=== PATIENT | female | born 1945 | race Caucasian/White ===

== ENCOUNTER 2016-12-26 14:56 | Inpatient (IN) | payer MEDICARE ==
[~2016-12-26] VITALS: Ht 160 cm; Wt 132.4 kg
[~2016-12-26 14:56] MED LIST: ACETAMINOPHEN P1 TA1 PO; ADLT ASA LOW81 MG PO; ANTIVERT PO; ASPIRIN/ENTERIC81 MG PO; BIO; BUPROPION HCL150 M2 PO; CYANOCOBAL1000 MCG/M IM; CYANOCOBALAM1000 MCG IJ; DEXAMETHASON4 MG OR; DOXEPIN HCL10 MG PO; EFFEXOR XR150 MG PO; ENALAPRIL5 MG PO; ESCITALOPRAM OX10 MG PO; FLURAZEPAM HCL15 MG PO; FOLIC ACID1 MG PO; FUROSEMIDE40 MG PO; GABAPENTIN100 MG PO; GABAPENTIN300 MG PO; GABAPENTIN800 MG PO; GLIPIZIDE ER10 MG OR; HUMULIN 70/30 SC; HYDROXYZ HCL50 MG OR; LANTUS SC; LANTUS100 MG/ML SC; LASIX 40 MG TAB40 MG PO; LEVOTHYROXIN25 MC1 PO; LORCET 5-325 MG1 TAB; LORCET 5-325 MG1 TAB PO; LORTAB 5 OR; LOSARTAN POT50 MG PO; MECLIZINE25 MG PO; MEDDOSEPAK PO; MELATONIN3 MG PO; METFORMIN1000 MG PO; METFORMIN500 M1 PO; NOVOLIN 70/30 SC; PROMETHAZINE HC25 MG OR; PROTONIX40 M2 PO; PROZAC10 MG OR; RESTORIL7.5 MG PO; SIMVASTATIN20 MG PO; TEMAZEPAM7.5 MG PO; TRAZODONE HCL50 MG PO; TRAZODONE50 MG PO; TRIAM/HCTZ1 CAP PO; VENLAFAXINE50 MG PO; VISTARIL25 MG PO; VITAMIN B-121000 MCG PO; VITAMIN D50000 UN1 PO; WELLBUTRIN SR150 MG PO; ZOFRAN ODT4 MG PO; ZOFRAN8 MG OR
[2016-12-28] VITALS (10 sets, daily range): BP systolic 129–150; BP diastolic 51–74
--- NOTE | 2016-12-28 10:45 | NUR ---
PT TO ROOM VIA BED ACCOMPANIED BY STAFF; PT DROWSY/AROUSABLE; ORIENTED X3; IVF INFUSING IN #20 LFA WITHOUT DIFFICULTY, NO REDNESS OR EDEMA NOTED; DRSG TO LEFT KNEE CDI, LLE ELEVATED ON 2 PILLOWS; SCD TO RLE; O2 2L VIA NC; ORIENTED TO ROOM AND CALL SYSTEM; CALL REED WITHIN REACH; WILL CONTINUE TO MONITOR.
--- NOTE | 2016-12-28 12:37 | NUR ---
PT. INSTRUCTED ON USE OF INCENTIVE SPIROMETER POST SURGERY. HER BEST EFFORT WAS 2000 ML X3 ATEMPTS. GOOD EFFORT GIVEN. DEVICE LEFT AT BEDSIDE WITH INSTRUCTION TO USE 10X/HR.
--- NOTE | 2016-12-28 13:04 | NUR ---
PHYSICAL THERAPY IN WITH PT
--- NOTE | 2016-12-28 13:35 | NUR ---
PT IN RECLINER WITH FEET ELEVATED; ICE PACK APPLIED AT THIS TIME TO LT KNEE; PT MEDICATED FOR LLE PAIN 05/21; CALL REED WITHIN REACH; WILL CONTINUE TO MONITOR.
--- NOTE | 2016-12-28 16:30 | NUR ---
PT ASSISTED BACK TO BED; NO COMPLAINTS VOICED AT THIS TIME; CALL REED WITHIN REACH; WILL CONTINUE TO MONITOR
--- NOTE | 2016-12-28 19:30 | NUR ---
FOUND PT ALERT AND ORIENTED X3; LYING SUPINE IN BED WITH LEFT LEG ELEVATED X1 PILLOW WITH ICE PACK PLACED ON AFFECTED LEG; C/O STABBING PAIN IN LEFT LEG RATES IT AT 10/10; MEDICATED WITH DILAUDID AND ZOFRAN FOR N/V; PT TEMP 101.0 AND HAS CHILLS; REMOVED BLANKET AND PROVIDED A SHEET ONLY; DENIES ANY OTHER DISCOMFORT; WILL CONTINUE TO MONITOR FEVER. CALL REED IS AT REACH.
--- NOTE | 2016-12-28 20:04 | NUR ---
PT C/O PAIN IN LEFT LEG; RATES IT AT 04/21; TEMP 101.0 AT THIS TIME; ADJUSTED ROOM TEMP AND REMOVED BLANKETS; WILL CONTINUE TO MONITOR.
--- NOTE | 2016-12-28 22:00 | NUR ---
NOTIFIED LAB ABOUT BLOOD CULTURES ORDERS STAT.
--- NOTE | 2016-12-28 22:00 | NUR ---
FOUND PT ON EDGE OF BED, TRYING TO GET OUT OF BED; CONFUSE; REORIENTED TO ENVIRONMENT; TEMP 102 TYMPANIC; WILL NOTIFY , ASSSITED PT BACK IN BED; PT PULL OUT IV; WILL RESTART A NEW IV SITE; BED ALARM IN PLACE WILL CONTINUE TO MONITOR.
--- NOTE | 2016-12-28 22:30 | NUR ---
PT PULLED OUT HER IV WHEN SHE WAS TRYING TO SIT UP. PT IS CONFUSED AND DISORIENTED AND DID NOT KNOW SHE WAS TRYING TO GET UP. THIS NURSE TRIED TO START IV IN LEFT HAND X1 AND WAS UNSUCCESSFUL. AISHA EASLEY NURSING HOME ASSISTANT ADMINISTRATOR CALLED TO ASSIST. TRACEE CANALES ABLE TO START IV IN RT HAND. IV FLUIDS STARTED PER ORDERS. IV WRAPPED WITH COBAN TO HELP PRESERVE SIGHT.
--- NOTE | 2016-12-28 23:50 | NUR ---
PT SITTING ON SIDE OF BED NAKED. TRYING TO GET OUT OF BED. IV PUMP AND SCD PUMP ALARMING. PT STATES SHE GOT UP BECAUSE THE MACHINES WERE BEEPING. PT APPEARS CONFUSED WHEN SHE TALKS TO THIS NURSE. PT IS SWEATING PROFUSELY. TEMPERATURE TAKEN. PTS NURSE NOTIFIED OF PT STATUS. REDRESSED AND HELPED BACK INTO BED. PILLOW SUPPORT UNDER LEFT KNEE AND ICE ON INCISION. DRESSING IS CLEAN AND DRY.
--- NOTE | 2016-12-29 00:01 | NUR ---
NOTIFIED LAB ABOUT BLOOD CULTURES ORDERED STAT.
--- NOTE | 2016-12-29 00:38 | NUR ---
FOUND PT TRYING TO GET UP OF BED; NAKED, SEEMS CONFUSE; REORIENTED TO ENVIRONMENT; DIAPHORETIC; TEMP 101.0 AT THIS TIME; WILL MEDICATE WITH PERCOCET PER DR. JACKMAN.
--- NOTE | 2016-12-29 01:11 | NUR ---
ASSISTED PT TO BSC WITH ASSISTANCE BY BONDING SUPERVISOR; PT ASSISTED SELF WITH WALKER; SITTING IN BSC WITH BONDING SUPERVISORBORIS IN ROOM GIVING HER A ASSISTED BATH.
--- NOTE | 2016-12-29 02:00 | NUR ---
NOTIFIED LAB ABOUT BLOOD CULTURES ORDER STAT.
[2016-12-29 02:37] LABS: URINE BILIRUBIN - DIPSTICK NEGATIVE (NEGATIVE); URINE BLOOD DIPSTICK NEGATIVE (NEGATIVE); URINE CLARITY CLEAR; URINE COLOR YELLOW; URINE GLUCOSE - DIPSTICK 100 mg/dL (NEGATIVE); URINE KETONE TRACE mg/dL (NEGATIVE); URINE LEUK ESTERASE SMALL (Negative); URINE NITRITE - DIPSTICK NEGATIVE (Negative); URINE PH 5.5 (4.5-8.0); URINE PROTEIN - DIPSTICK NEGATIVE (NEG-TRACE); URINE SPECIFIC GRAVITY >=1.030; URINE UROBILINOGEN - DIPSTICK 0.2 E.U./dL (0.2)
--- NOTE | 2016-12-29 02:45 | NUR ---
BLOOD CULTURES DRAWN FROM IV SITE DUE TO POOR PT VEINS. IV STOPPED AND 10CC OF INITIAL BLOOD WASTED. BLOOD DRAWN FROM CATHETER WITHOUT DIFFICULTY. BLOOD CULTURES SENT TO LAB.
[2016-12-29 03:42] LABS: URINE BACTERIA FEW hpf; URINE SQUAMOUS EPITHELIAL CELL FEW EPI/hpf (0-FEW)
--- NOTE | 2016-12-29 03:46 | NUR ---
MEDICATED WITH DILAUDID AND ZOFRAN BY PT REQUEST FOR PAIN ON LEFT KNEE; RATES IT AT 8/10; C/O SOME N/V; TEMP 98.0 AT THIS TIME; ALERT AND ORIENTED X3; WILL CONTINUE TO REASSESS PAIN; CALL REED AT REACH; ENCOURAGED TO CALL IF NEEDED; SCD'S IN PLACE; CONTINUE WITH LLE ELEVATED ON A PILLOW AND ICE IN PLACE; DRESSING REMAINS DRY, NO DRAINAGE NOTED AT THIS TIME; CONTINUE WITH SOME SWELLING ON AFFECTED LEG +1 EDEMA NOTED; WILL CONTINUE TO MONITOR. PT USING INCENTIVE SPIROMETRY AND ABLE TO GO UP TO 1500. CALL REED AT REACH AND BED ALARM IN PLACE.
[2016-12-29 04:03] LABS: CALCIUM 8.1 mg/dL (8.4-10.2); CREATININE 1.2 mg/dL (0.5-1.0)
[2016-12-29 04:10] VITALS: BP 136/72
[2016-12-29 05:13] LABS: HEMATOCRIT 27.2 % (37.0-47.0); HEMOGLOBIN 8.4 g/dl (12.0-16.0); IMMATURE GRANULOCYTES 0.7 % (0.0-1.0); MEAN CELL VOLUME 92.5 fL CALC (80.0-100.0); MEAN CORPUSCULAR HGB 28.6 pG CALC (26.0-32.0); MEAN CORPUSCULAR HGB CONC 30.9 g/L CALC (32.0-36.0); NEUT# 14.84 thou/uL (2.00-7.15); RED BLOOD COUNT 2.94 mill/uL (4.20-5.60)
--- NOTE | 2016-12-29 05:48 | NUR ---
PT RESTING WITH EYES CLOSED; RESP EVEN AND UNLABORED; VOICES NO NEW COMPLAINTS AFEBRILE; WILL CONTINUE TO MONITOR.
[2016-12-29 07:33] VITALS: BP 128/65
--- NOTE | 2016-12-29 08:00 | NUR ---
PT TOLERATING DIET WELL; NO COMPLAINTS VOICED; IVF INFUSING WITHOUT DIFFICULTY; CALL REED WITHIN REACH; WILL CONTINUE TO MONITOR.
--- NOTE | 2016-12-29 09:42 | NUR ---
PT AROUSED EASILY TO VERBAL STIMULI; DENIES PAIN; DRSG TO LT KNEE CDI; ENCOURAGE USE OF CALL LIGHT IF ANY ASSISTANCE IS NEEDED; WILL CONTINUE TO MONITOR.
--- NOTE | 2016-12-29 10:28 | NUR ---
PT MEDICATED ORDERED FOR C/O LT KNEE PAIN 05/21; CALL REED WITHIN REACH; WILL CONTINUE TO MONITOR.
--- NOTE | 2016-12-29 11:04 | NUR ---
PHYSICAL THERAPY IN WITH PT; ASSISTED TO RECLINER, FEET ELEVATED; CALL REED WITHIN REACH; WILL CONTINUE TO MONITOR.
[2016-12-29 11:34] VITALS: BP 107/56
--- NOTE | 2016-12-29 13:08 | NUR ---
AM; PATIENT SEEN BEDSIDE FOR ADL AND EX. EX DONE FOR QUAD AND GLUT SETS, ANKLE PUMPS, SLR, LAQ. PATIENT ABLE TO SLR TIMES ONE. TRANSFER TRAINING DONE SUPINE TO SIT AND SIT TO AND FROM STAND. REQUIRED MIN ASSIST FOR SUPINE TO SIT AND SIT TO AND FROM STAND AND VERBAL CUING FOR SAFETY. DURING TRANSFERS TO THE CHAIR WITH THE ROLLING WALKER SHE HAD TAKED 3 STEPS AND HER KNEES BUCKLED. THE THERAPIST WAS ABLE TO PIVOT HER INTO THE CHAIR. PATIENT STATES THIS HAPPENS TO HER AT HOME TOO. SHE IS LEFT COMFORTABLE IN THE CHAIR WITH THE CALL IN HER LAP AND THE LEGS ELEVATED.
--- NOTE | 2016-12-29 13:18 | NUR ---
PT WATCHING TV; NO COMPLAINTS VOICED; CALL REED WITHIN REACH; WILL CONTINUE TO MONITOR.
[2016-12-29 15:13] VITALS: BP 128/50
--- NOTE | 2016-12-29 16:04 | NUR ---
PM: PATIENT SEEN FOR FA AND GAIT TRAINING. TRANSFER TRAINING DONE FROM COMMODE TO BED DONE WITH MAX ASSIST OF 2. PATIENT UNABLE TO COME COMPLETELY UPRIGHT AND WANTS TO LEAN ON HER WALKER WITH HER FOREARMS. SHE IS COLLAPSING HER KNEES WHEN HALF WAY THRU THE TRANSFER CAUSING VERY UNSAFE TRANSFERS. SHE DOES NOT NOT KNOW WHY THIS HAPPENS. GAIT TRAINING DONE ALONG SIDE OF THE BED DOING SIDESTEPPING. AGAIN ENCOURAGING AN ERECT POSTURE AN STRAIGHT KNEES. TRANSFERS SIT TO AND FROM STAND PRACTICED. SHE DOES THE BEST PUSHING WITH ONE HAND ON THE FURNITURE AND ONE ON THE WALKER. PATIENT REITERATES SHE WANTS TO GO HOME TOMORROW BUT THE THERAPIST IS ENCOURAGING HER TO REHAB SHE IS MAX ASSIST OF 2 FOR TRANSFERS TODAY AND IN [place] WILL NOT BE READY FOR INDEP BY TOMORROW. SHE ALSO HAS 5 STEPS AT HOME TO NEGOTIATE. PATIENT WAS LEFT COMFORTABLE IN THE BED WITH THE CALL LIGHT AND TRAY TABLE WITHIN REACH.
[2016-12-29 18:55] VITALS: BP 146/72
--- NOTE | 2016-12-29 19:15 | NUR ---
PT ATTEMPTING TO GET OUT OF BED ON HER OWN DID NOT USE CALL LIGHT FOR ASSISTANCE. MOVED CLOSER TO NURSES STATION ROOM 260. ALERT TO SELF AND , NOT ABLE TO STATE WHERE SHE IS OR DATE, REORIENTED AT THIS TIME AND NOTICED TO BE CONFUSED, BED ALARM APPLIED. DRESSING IN PLACE TO LEFT KNEE CDI. DENIES PAIN. LR INFUSING TO RH AT 100CC/HR. ICE PACK APPLIED TO LEFT KNEE. CALL LIGHT IN REACH.
--- NOTE | 2016-12-29 22:48 | NUR ---
TYMPANIC TEMP 102.1; PT CONFUSE, REORIENTED TO ENVIRONMENT; BED ALARM IN PLACE; ADJUSTED ROOM TEMP, AND PLACED ICE PACKS TO BILA AXILLARIES, BETWEEN BLE, COLD WASHCLOT ON FOREHEA; ICE PACK ON LT KNEE AND ELEVATED WITH A PILLOW, DRSG REMAINS CLEAN, DRY WITHOUT DRAINAGE NOTED; SAFETY MEASURES ARE IN PLACE WILL NOTIFIY DRZuleima ABOUT TEMP SPIKE. WILL CONTINUE TO REASSESS.
--- NOTE | 2016-12-29 23:00 | NUR ---
NOTIFIED OF PT TEMP 102.1; NEW ORDERS RECEIVED, BEATRICE FOR PHARMACY VERIFICATION.
--- NOTE | 2016-12-29 23:30 | NUR ---
MEDICATED PT WITH MOTRIN; FOUND PT ATTEMPTING TO GET UP OF BED; CONFUSE STATES "THIS IS MY HOUSE AND I CAN GET UP ANYTIME I WANT." REORIENTED TO ENVIRONMENT, BUT PT INSISTS THAT SHE IS AT HOME, DENIES THAT SHE HAS SURGERY. REPOSITIONED PT WITH ASSISTANCE X2; ELEVATED LLE ON PILLOW WITH ICE ON KNEE; BED ALARM IN PLACE; WILL COTINUE TO MONITOR.
[2016-12-30] VITALS (8 sets, daily range): BP systolic 90–134; BP diastolic 50–60
[2016-12-30 05:35] LABS: HEMATOCRIT 22.8 % (37.0-47.0); HEMOGLOBIN 7.2 g/dl (12.0-16.0); IMMATURE GRANULOCYTES 0.7 % (0.0-1.0); MEAN CELL VOLUME 91.9 fL CALC (80.0-100.0); MEAN CORPUSCULAR HGB CONC 31.6 g/L CALC (32.0-36.0); NEUT# 11.98 thou/uL (2.00-7.15); RED BLOOD COUNT 2.48 mill/uL (4.20-5.60); RED CELL DISTRI WIDTH 15.5 % (11.5-15.5)
--- NOTE | 2016-12-30 05:52 | NUR ---
PT AWAKE, ALERT AND ORIENTED X3 AT THIS TIME; TEMP 98.2 AT THIS TIME; RESP EVEN AND UNLABORED; LR INFUSING AT 100ML/HR; WITHOUT DIFFICULTY; IV SITE REMAINS INTACT; SCD'S TO RLE, AND LEFT KNEE ELEVATED WITH ICE PACK ON LEFT KNEE; PT DENIES PAIN OR DISCOMFORT AT THIS TIME; VSS, WILL CONTINUE TO MONITOR.
[2016-12-30 05:56] LABS: CALCIUM 7.8 mg/dL (8.4-10.2); CREATININE 1.9 mg/dL (0.5-1.0); POTASSIUM 4.9 mmol/l (3.5-5.1)
--- NOTE | 2016-12-30 06:50 | NUR ---
271 ML ON BLADDER SCAN READING; PT UNDERPADS WET, SYSTEMS INTEGRATOR, ANGIA AND RANDOLPH CHANGING LINENS AND PROVIDING PT WITH A BED BATH AT THIS TIME; PT A/0X3; DENIES PAIN. WILL CONTINUE TO MONITOR. NOTIFIED LAB FOR TYPE AND SCREEN ORDER. WAITING FOR PHARMACY TO PROFILE NS FOR IV BOLUS.
--- NOTE | 2016-12-30 07:02 | NUR ---
NS BOLUS HUNG AT THIS TIME; LAB DRAWING PT FOR TYPE AND SCREEN AT THIS TIME.
--- NOTE | 2016-12-30 08:34 | NUR ---
PRBC INFUSION STARTED AT THIS TIME; INSTRUCTED PT ON S/SX OF REACTION; CALL REED WITHIN REACH; WILL CONTINUE TO MONITOR.
--- NOTE | 2016-12-30 09:00 | NUR ---
DRSG TO LEFT KNEE REMOVED; INCISION WITHOUT REDNESS, WELL APPROXIMATED; COVERED WITH TELFA AND SECURED WITH TEGADERM; PT ASSISTED TO BSC; VOIDS 600 ML CLEAR YELLOW URINE; ASSISTED TO RECLINER FEET ELEVATED; CALL REED WITHIN REACH; WILL CONTINUE TO MONITOR.
--- NOTE | 2016-12-30 09:34 | NUR ---
PHYSICAL THERAPY IN WITH PT
--- NOTE | 2016-12-30 10:03 | NUR ---
DR. GAINES IN TO SEE PT; PLAN OF CARE DISCUSSED
--- NOTE | 2016-12-30 11:41 | NUR ---
PRBC INFUSION COMPLETE; VSS; PT DOES NOT VOICE ANY COMPLAINTS OF PAIN OR DISCOMFORT; CALL REED WITHIN REACH; BED ALARM IN PLACE FOR SAFETY; WILL CONTINUE TO MONITOR.
--- NOTE | 2016-12-30 13:16 | NUR ---
AM: PATIENT UP IN CHAIR. SHE WAS SEEN FOR EX AND FA. DURING THE EVENING SHE WAS TRANSFERED CLOSER TO THE NURSING STATION SHE WAS VERY CONFUSED. ACTIVE AND AA EX DONE IN THE CHAIR. IN SITTING KNEE FLEXION WAS 75 DEGREES. POOR EXTENSION ACTIVELY. PATIENT WANTED TO RETURN TO THE BED. SHE WAS RECEIVING BLOOD PRODUCT. TRANSFER WAS DONE WITH HER NURSE ANALIA ASSISTING. MAX ASSIST OF 2 WAS NEEDED. PATIENT NOT FOLLOWING INSTRUCTIONS. DOES NOT WANT TO BEAR WGT ON THE LEFT LEG. STATED SHE WOULD IN 3 WKS. MAX ASSIST FOR SIT TO SUPINE TRANSFERS. SHE WAS LEFT COMFORTABLE WITH THE TRAY TABLE AND CALL LIGHT NEXT TO HER.
--- NOTE | 2016-12-30 15:15 | NUR ---
PT WITH VISITORS AT BEDSIDE; NO COMPLAINTS VOICED; CALL REED WITHIN REACH; WILL CONTINUE TO MONITOR.
--- NOTE | 2016-12-30 17:00 | NUR ---
PM; TREATMENT LIMITED TO EXERCISES THE PATIENT HAD JUST BEEN RETURNED TO THE BED AFTER USING THE COMMODE AND NURSING STATES THE PATIENT EXPERIENCED GREAT DIFFICULTY WITH THE TRANSFER AND REQUIRED MAX ASSIST OF 2. EX DONE FOR STRETCHING AND STRENGTHENING OF THE LEFT LE. QUAD SET IS MUCH IMPROVED AND SHE IS CLOSE TO BEING ABLE TO SLR. SHE WAS LEFT COMFORTABLE IN THE BED AND ENCOURAGED TO PERFORM SOME OF THE EXERCISES REGULARLY DURING THE EVENING HOURS.
--- NOTE | 2016-12-30 19:44 | NUR ---
PT IS CONFUSED ALERT TO SELF AND , REORIENTED TO TIME AND PLACE AND SITUATION. TEMP 101.4, AND C/O PAIN 5/10 MEDICATED WITH PERCOCET AT THIS TIME AND ICE PACK APPLIED TO LEFT KNEE, CHEST AND FOREHEAD. RESPIRATIONS EVEN AND UNLABORED. BED ALARM IN PLACE. WILL CONTINUE TO MONITOR.
[2016-12-31 00:18] VITALS: BP 112/47
--- NOTE | 2016-12-31 00:45 | NUR ---
INCONTINENT OF LARGE AMOUNT OF DARK YELLOW URINE, PT IS CONFUSED, ORIENTED TO TIME AND DATE BUT CONTINUES TO BE CONFUSED. BO CARE, BED BATH AND CLEAN LINENS PROVIDED. PT HELPS WITH TURNING BUT IS A TWO PERSON ASSIST DUE TO WEIGHT. ICE PACKS APPLIED TO LEFT LEG, CHEST AND FOREHEAD TEMP 99.7, MEDICATED WITH PERCOCET FOR C/O PAIN 6/10 TO LEFT LEG. SCD TO RLE. BED ALARM IN PLACE. WILL CONTINUE TO MONITOR.
--- NOTE | 2016-12-31 02:30 | NUR ---
PT RESTING IN BED WITH EYES CLOSED, RESPIRATIONS EVEN AND UNLABORED.
[2016-12-31 04:08] VITALS: BP 103/52
--- NOTE | 2016-12-31 06:00 | NUR ---
ASSISTED TO BED LAKE PER PT REQUEST STATE "I DONT FEEL LIKE I CAN MAKE IT TO THE COMMODE", INCONTINENT OF LARGE AMOUNT OF URINE, SCANT AMOUNT IN BED LAKE, BO CARE PROVIDED.
[2016-12-31 06:12] LABS: HEMATOCRIT 23.7 % (37.0-47.0); HEMOGLOBIN 7.7 g/dl (12.0-16.0); IMMATURE GRANULOCYTES 1.2 % (0.0-1.0); MEAN CELL VOLUME 90.1 fL CALC (80.0-100.0); MEAN CORPUSCULAR HGB 29.3 pG CALC (26.0-32.0); MEAN CORPUSCULAR HGB CONC 32.5 g/L CALC (32.0-36.0); NEUT# 11.71 thou/uL (2.00-7.15); RED BLOOD COUNT 2.63 mill/uL (4.20-5.60); RED CELL DISTRI WIDTH 15.9 % (11.5-15.5)
[2016-12-31 06:33] LABS: CALCIUM 7.8 mg/dL (8.4-10.2); CREATININE 1.4 mg/dL (0.5-1.0); POTASSIUM 4.7 mmol/l (3.5-5.1)
--- NOTE | 2016-12-31 07:30 | NUR ---
ASSISTED WITH BREAKFAST SET UP; DRSG TO LEFT KNEE CDI; O2 2L VIA NC; SCD TO RLE; CALL REED WITHIN REACH; BED ALARM IN PLACE FOR SAFETY; WILL CONTINUE TO MONITOR.
[2016-12-31 08:04] VITALS: BP 118/60
--- NOTE | 2016-12-31 09:40 | NUR ---
PHYSICAL THERAPY IN WITH PT
--- NOTE | 2016-12-31 10:00 | NUR ---
PT WAS ASSISTED TO THE FLOOR BY PHYSICAL THERAPIST; ARSH LIFT BACK TO BED; NO INJURY NOTED; PT A/O X3 WITH CONFUSION AT TIMES; DRSG TO LEFT KNEE REMOVED; AREA CLEANED WITH BETADINE; COVERED WITH DRY 4X4 GAUZE AND SECURED WITH MEDIPORE TAPE; BED ALARM IN PLACE FOR SAFETY; SIDERAILS UP X2; CALL REED WITHIN REACH; WILL CONTINUE TO MONITOR.
--- NOTE | 2016-12-31 12:21 | NUR ---
AM: PATIENT SEEN FOR FA. TRANSFER TRAIINING DONE SUPINE TO SIT, AND SIT TO COMMODE AND COMMODE TO CHAIR. MOD ASSIST NEEDED FOR SUPINE TO SIT, AND MAX ASSIST OF 2 FOR PIVOT TRANSFERS. PATIENT DOES NOT APPEAR TO TRY TO HOLD HERSELF IN STANDING. SHE WAS LEFT COMFORTABLE IN THE CHAIR.
[2016-12-31 12:52] VITALS: BP 129/53
--- NOTE | 2016-12-31 12:53 | NUR ---
Pt sitting in chair, just finished her lunch. Sitting ex performed x 20 reps each. Pt practiced her IS use as well, up to 1000.
--- NOTE | 2016-12-31 15:30 | NUR ---
PT ATTEMPTING TO GET OOB; ASSISTED BACK TO BED; BED ALARM IN PLACE; PT A/CONFUSED; DENIES PAIN; CALL REED WITHIN REACH; WILL CONTINUE TO MONITOR.
--- NOTE | 2016-12-31 17:20 | NUR ---
T 102.8; ICE PACKS PLACE ON PT; MEDICATED FOR PAIN 4/10 TO LEFT KNEE; DRSG TO LEFT KNEE SATURATED WITH BLOOD; DRSG REMOVED; AREA CLEANED WITH NS, COVERED WITH DRY 4X4 AND SECURED WITH MEDIPORE TAPE; PT TOLERATED WELL; CALL REED WITHIN REACH; WILL CONTINUE TO MONITOR.
[2016-12-31 17:27] VITALS: BP 131/67
[2016-12-31 19:47] VITALS: BP 104/61
--- NOTE | 2016-12-31 19:56 | NUR ---
PT APPEARS TO BE ASLEEP AT THIS TIME;WOKE PT TO OBTAIN VS AND ASSESSMENT;PT DENIES ANY PAIN JUST STATES "I WANT TO GO TO SLEEP";ASSESSMENT COMPLETED;DRY DRESSING TO LEFT KNEE,CDI;#20 TO RIGHT HAND FLUSHED AND PATENT,FLUIDS RESTARTED @ KVO PER MD NOTES;SCD IN PLACE;SKIN INTACT;PT AFEBRILE AT THIS TIME,ICE PACKS PROVIDED AND AC CONTINUED TO BE LOWERED;I.S AT BEDSIDE AND PT RE-EDUCATED ON USE;BED ALARM ON;PT DENIES ANY NEEDS;PT RE-EDUCATED ON ROOM AND CALL LIGHT SYSTEM AND VERBALIZES UNDERSTANDING;SAFETY PRECAUTIONS REINFORCED;BED IN LOWEST POSITION WITH CALL LIGHT IN REACH;WILL CONTINUE TO MONITOR
--- NOTE | 2016-12-31 21:40 | NUR ---
PT RESTING IN SEMI FOWLERS POSITION;PT COMPLAINS OF LEFT KNEE PAIN RATING 9/10 ON THE PAIN SCALE AND REQUESTS PRN PAIN MEDICATION;PT TO BE MEDICATED ACCORDNIGLY PER MD ORDERS;WILL CONTINUE TO MONITOR
--- NOTE | 2016-12-31 22:20 | NUR ---
PT VOIDED 1000CC OF CLEAR,YELLOW URINE;BED BATH,NEW LINENS AND GOWN PROVIDED;IV FLUIDS INFUSING WELL TO RIGHT HAND;DRESSING,CDI;PT DENIES ANY NEEDS AT THIS TIME;PT EDUCATED TO CALL FOR ASSISTANCE IF NEEDED;BED IN LOWEST POSITION WITH CALL LIGHT IN REACH;WILL CONTINUE TO MONITOR
--- NOTE | 2016-12-31 23:55 | NUR ---
PT APPEARS TO BE SLEEPING AT THIS TIME;WOKE PT TO OBTAIN TEMP;PT SKIN CLAMMY TO TOUCH TEMP 98.4 AT THIS TIME;PT DENIES ANY PAIN OR NEEDS;AC REMAINS LOWERED;IV FLUIDS INFUSING WELL;LEFT LEG ELEVATED WITH PILLOW AND SCD TO RIGHT LEG;BED IN LOWEST POSITION WITH CALL LIGHT IN REACH;WILL CONTINUE TO MONITOR
--- NOTE | 2017-01-01 05:20 | NUR ---
PT CALLED WRITTER INTO ROOM FOR AN INCONTINENT EPISODE;VS OBTAINED;BO CARE AND NEW LINENS PROVIDED;PT DENIES ANY PAIN OR DISCOMFORTS AT THIS TIME;IV SITE NOTED TO BE DISLODGED WITH CATHETER INTACT;NEW SITE TO BE STARTED;LEFT LEG ELEVATED WITH A PILLOW;DRY DRESSING,CDI;I.S. AT BEDSIDE;PT DENIES ANY OTHER NEEDS AT THIS TIME;PT EDUCATED TO CALL FOR ASSISTANCE IF NEEDED;BED IN LOWEST POSITION WITH CALL LIGHT IN REACH;WILL CONTINUE TO MONITOR
[2017-01-01 05:28] VITALS: BP 106/45
[2017-01-01 05:58] LABS: HEMATOCRIT 23.8 % (37.0-47.0); HEMOGLOBIN 7.5 g/dl (12.0-16.0); IMMATURE GRANULOCYTES 1.1 % (0.0-1.0); MEAN CELL VOLUME 91.5 fL CALC (80.0-100.0); MEAN CORPUSCULAR HGB 28.8 pG CALC (26.0-32.0); MEAN CORPUSCULAR HGB CONC 31.5 g/L CALC (32.0-36.0); NEUT# 9.58 thou/uL (2.00-7.15); RED BLOOD COUNT 2.6 mill/uL (4.20-5.60); RED CELL DISTRI WIDTH 15.6 % (11.5-15.5)
[2017-01-01 06:06] LABS: CALCIUM 8.1 mg/dL (8.4-10.2); CREATININE 1.4 mg/dL (0.5-1.0); POTASSIUM 4.6 mmol/l (3.5-5.1)
--- NOTE | 2017-01-01 06:25 | NUR ---
NEW #22 STARTED TO LEFT FOREARM BY PARKER KOVACS;PT DENIES ANY NEEDS AT THIS TIME;WILL CONTINUE TO MONITOR
--- NOTE | 2017-01-01 07:00 | NUR ---
REPORT RECIEVED FROM DAWNA FAJARDO; PT SITTING UP IN BED; NO S/S OF DISTRESS NOTED; PT DENIES ANY NEEDS AT THIS TIME; IVF INFUSING AT PRESCRIBED RATE; CALL LIGHT WITHIN REACH; WILL CONTINUE TO MONITOR
[2017-01-01 08:44] VITALS: BP 104/53
--- NOTE | 2017-01-01 10:22 | NUR ---
PATIENT SOUND ASLEEP, REQUIRING TACTILE STIM TO AROUSE. ANXIOUS TO GET OOB DUE TO PAIN FROM BED AT [place]. SUPINE TO SIT MIN TO MOD A OF 2. SIT TO STAND WITH MAX A OF 1 FOR BED TO CHAIR. ABLE TO TAKE FEW STEPS AND SIT SAFELY WITH V.C.'S FOR HAND PLACEMENT. O2 SATS DROPPED TO 88 WITHOUT O2 AND RETURNED QUICKLY TO 93%. PATIENT THEN SIT TO STAND SIT TO STAND FROM RECLINER WITH MIN A AND 2 ATTEMPTS TO WALKER. AMB 6 FEET FOLLOWED WITH CHAIR WITH MIN A. STAND TO SIT WITH PROPER HAND PLACEMENT AND V.C.'S. O2 DESAT TO 74% AND RETURNED TO 95% IN < 1 MIN WITH REPLACEMENT OF O2 VIA NC. CALL REED, PHONE, TRAY TABLE W/I REACH AND SCD REPLACED ON R LEG. TOLERATED WELL.
[2017-01-01] MEDS ORDERED: PERCOCET 10/31 COMBO PO (10:49)
[2017-01-01] MEDS ORDERED: GABAPENTIN600 MG PO (10:53)
--- NOTE | 2017-01-01 13:24 | NUR ---
DRESSING TO LEFT KNEE CHANGED AT THIS TIME WITH DRY GAUZE AND PAPER TAPE; PT TOLERATED WELL; VISITORS AT BEDSIDE; PT DENIES ANY OTHER NEEDS AT THIS TIME; CALL LIGHT WITHIN REACH; WILL CONTINUE TO MONITOR
--- NOTE | 2017-01-01 14:00 | NUR ---
Discharge instructions given. Patient verbalizes understanding of same. Discharged in stable condition via Medical Transport to [facility] with staff. All belongings sent with pt.
--- NOTE | 2017-01-01 14:01 | NUR ---
PT WAS SEEN SITTING IN THE RECLINER WAITING FOR THE STAFF FROM THE REHAB TO PICK HER UP. ASSISTED PT FROM RECLINER TO WCHAIR WITH ROLLING WALKER MAX A OF 2 AND VERBAL CUES, DID ~3-4 STEPS TO THE WCHAIR. SPO2 WAS BETWEEN 96-93% ON ROOM AIR. LEFT PT SITTING COMFORTABLY IN THE WCHAIR WITH THE REHAB STAFF.
== END 2017-01-01 14:00 | DRG 470 ==
LOC: ENPENDDIS → MS2 12-28 05:24
PROVIDERS: ADMIT Orthopaedic Surgery; ATTEND Internal Medicine
PROC: 0SRD0J9 Replacement of Left Knee Joint with Synthetic Substitute, Cemented, Open Approach (ICD-10-PCS; principal; 2016-12-28)
PROC: 30233N1 Transfusion of Nonautologous Red Blood Cells into Peripheral Vein, Percutaneous Approach (ICD-10-PCS; 2016-12-30)
DX: M17.12 Unilateral primary osteoarthritis, left knee (principal); N17.9 Acute kidney failure, unspecified; F05 Delirium due to known physiological condition; Z68.43 Body mass index [BMI] 50.0-59.9, adult; E66.01 Morbid (severe) obesity due to excess calories; N39.0 Urinary tract infection, site not specified; D62 Acute posthemorrhagic anemia; I10 Essential (primary) hypertension; E11.9 Type 2 diabetes mellitus without complications; E78.5 Hyperlipidemia, unspecified; F32.9 Major depressive disorder, single episode, unspecified; Z79.4 Long term (current) use of insulin
CPT/HCPCS: J2270; P9016

== ENCOUNTER 2017-01-04 11:22 | Emergency (ER) | payer MEDICARE ==
[~2017-01-04] VITALS: Ht 160 cm; Wt 132.7 kg
[~2017-01-04 11:22] MED LIST changes: +GABAPENTIN600 MG PO; +PERCOCET 10/31 COMBO PO
[2017-01-04 12:09] LABS: HEMATOCRIT 26.9 % (37.0-47.0); HEMOGLOBIN 8.2 g/dl (12.0-16.0); IMMATURE GRANULOCYTES 2.8 % (0.0-1.0); MEAN CELL VOLUME 92.4 fL CALC (80.0-100.0); MEAN CORPUSCULAR HGB 28.2 pG CALC (26.0-32.0); MEAN CORPUSCULAR HGB CONC 30.5 g/L CALC (32.0-36.0); NEUT# 8.84 thou/uL (2.00-7.15); RED BLOOD COUNT 2.91 mill/uL (4.20-5.60); RED CELL DISTRI WIDTH 15.6 % (11.5-15.5)
[2017-01-04 12:22] LABS: ALBUMIN 3.6 g/dL (3.2-5.0); ALKALINE PHOSPHATASE 328 u/l (38-126); ANION GAP 14 (6-22 (CALC)); BUN 18 mg/dL (8-23); BUN/CREATININE RATIO 22 (12-20 (CALC)); CALCIUM 9.1 mg/dL (8.4-10.2); CARBON DIOXIDE 28 mmol/l (22-30); CHLORIDE 104 mmol/l (95-108); CREATININE 0.9 mg/dL (0.5-1.0); GFR > 60 ML/MIN (>=60 (CALC)); GFR FOR AFR.AMER. > 60 ML/MIN (>=60 (CALC)); GLUCOSE 134 mg/dL (82-115); POTASSIUM 4.3 mmol/l (3.5-5.1); SGOT/AST 121 u/l (9-36); SGPT/ALT 102 u/l (11-66); SODIUM 141 mmol/l (137-146)
[2017-01-04 12:32] LABS: ACT PARTIAL THROMBO TIME 29.2 SECONDS (20.0-32.5); INTERNATIONAL NORMALIZED RATIO 1.1 RATIO (0.7-1.3); PROTHROMBIN TIME 11.5 SECONDS (9.0-12.5)
[2017-01-04] MEDS ORDERED: MILK OF MAG30 ML/UDC PO (14:46)
[2017-01-04 15:45] LABS: HEMATOCRIT 26.4 % (37.0-47.0); HEMOGLOBIN 8.2 g/dl (12.0-16.0)
[2017-01-04 18:34] VITALS: BP 121/58
== END 2017-01-04 18:35 | disposition short-term general hospital (02) ==
LOC: ED 11:22
PROVIDERS: Emergency Medicine
DX: I21.4 Non-ST elevation (NSTEMI) myocardial infarction (principal); D64.9 Anemia, unspecified; I10 Essential (primary) hypertension; E11.9 Type 2 diabetes mellitus without complications; E03.9 Hypothyroidism, unspecified; E78.00 Pure hypercholesterolemia, unspecified; F32.9 Major depressive disorder, single episode, unspecified; M25.462 Effusion, left knee; M79.662 Pain in left lower leg; Z85.038 Personal history of other malignant neoplasm of large intestine; Z96.652 Presence of left artificial knee joint

== ENCOUNTER 2017-07-05 11:55 | Emergency (ER) | payer MEDICARE ==
[~2017-07-05] VITALS: Ht 157.5 cm; Wt 124.4 kg
[~2017-07-05 11:55] MED LIST changes: +MILK OF MAG30 ML/UDC PO; +RESTORIL15 MG PO
[2017-07-05 11:57] VITALS: BP 144/74
[2017-07-09] MEDS ORDERED: GABAPENTIN800 MG PO (10:18)
[2017-07-09] MEDS ORDERED: METFORMIN1000 MG PO (10:28)
[2017-07-09] MEDS ORDERED: COLON CLEANSE1 CAP PO (10:30)
== END 2017-07-05 12:04 | disposition left against medical advice (07) ==
LOC: ED 11:55 → LWOBS 12:04
DX: Z91.19 Patient's noncompliance with other medical treatment and regimen (principal)

== ENCOUNTER 2018-02-21 08:47 | Inpatient (IN) | payer MEDICARE ==
[~2018-02-21] VITALS: Ht 160 cm; Wt 128.0 kg
[~2018-02-21 08:47] MED LIST changes: +COLON CLEANSE1 CAP PO
[2018-02-21] MEDS ORDERED: B-12500 MCG IM (09:24)
[2018-02-24] VITALS (7 sets, daily range): BP systolic 130–145; BP diastolic 40–57
[2018-02-25 00:15] VITALS: BP 113/61
[2018-02-25 04:00] VITALS: BP 119/61
[2018-02-25 05:32] LABS: HEMATOCRIT 29.4 % (37.0-47.0); HEMOGLOBIN 9.3 g/dl (12.0-16.0); MEAN CELL VOLUME 96.7 fL CALC (80.0-100.0); MEAN CORPUSCULAR HGB 30.6 pG CALC (26.0-32.0); MEAN CORPUSCULAR HGB CONC 31.6 g/L CALC (32.0-36.0); RED BLOOD COUNT 3.04 mill/uL (4.20-5.60); RED CELL DISTRI WIDTH 14.5 % (11.5-15.5)
[2018-02-25 05:55] LABS: CREATININE 1.1 mg/dL (0.5-1.0); MAGNESIUM 1.5 mg/dL (1.6-2.3)
[2018-02-25 06:07] LABS: POTASSIUM 5.2 mmol/l (3.5-5.1)
[2018-02-25 08:40] VITALS: BP 104/49
[2018-02-25 15:31] VITALS: BP 117/56
[2018-02-25 18:00] VITALS: BP 131/63
[2018-02-25 23:44] VITALS: BP 128/57
[2018-02-25 23:56] LABS: URINE BILIRUBIN - DIPSTICK NEGATIVE (NEGATIVE); URINE BLOOD DIPSTICK NEGATIVE (NEGATIVE); URINE COLOR YELLOW; URINE GLUCOSE - DIPSTICK NEGATIVE (NEGATIVE); URINE KETONE NEGATIVE (NEGATIVE); URINE LEUK ESTERASE TRACE (NEGATIVE); URINE NITRITE - DIPSTICK NEGATIVE (Negative); URINE PH 5.5 (4.5-8.0); URINE PROTEIN - DIPSTICK NEGATIVE (NEG-TRACE); URINE SPECIFIC GRAVITY 1.015; URINE UROBILINOGEN - DIPSTICK 0.2 E.U./dL (0.2)
[2018-02-25 23:57] LABS: URINE CLARITY CLEAR
[2018-02-26 04:00] VITALS: BP 124/63
[2018-02-26 05:27] LABS: HEMATOCRIT 26.5 % (37.0-47.0); HEMOGLOBIN 8.5 g/dl (12.0-16.0); IMMATURE GRANULOCYTES 0.8 % (0.0-5.0); MEAN CELL VOLUME 95.3 fL CALC (80.0-100.0); MEAN CORPUSCULAR HGB 30.6 pG CALC (26.0-32.0); MEAN CORPUSCULAR HGB CONC 32.1 g/L CALC (32.0-36.0); NEUT# 9.15 thou/uL (2.00-7.15); RED BLOOD COUNT 2.78 mill/uL (4.20-5.60); RED CELL DISTRI WIDTH 14.8 % (11.5-15.5)
[2018-02-26 05:39] LABS: CREATININE 1.1 mg/dL (0.5-1.0); POTASSIUM 4.4 mmol/l (3.5-5.1)
[2018-02-26 05:46] LABS: MAGNESIUM 1.9 mg/dL (1.6-2.3)
[2018-02-26 07:41] VITALS: BP 107/56
[2018-02-26 16:14] VITALS: BP 117/64
[2018-02-26 20:31] VITALS: BP 139/65
[2018-02-26 23:25] VITALS: BP 116/52
[2018-02-27] VITALS (8 sets, daily range): BP systolic 103–131; BP diastolic 47–63
[2018-02-27 05:08] LABS: HEMATOCRIT 23.4 % (37.0-47.0); HEMOGLOBIN 7.4 g/dl (12.0-16.0); MEAN CELL VOLUME 95.1 fL CALC (80.0-100.0); MEAN CORPUSCULAR HGB 30.1 pG CALC (26.0-32.0); MEAN CORPUSCULAR HGB CONC 31.6 g/L CALC (32.0-36.0); NEUT# 8.45 thou/uL (2.00-7.15); RED BLOOD COUNT 2.46 mill/uL (4.20-5.60); RED CELL DISTRI WIDTH 14.9 % (11.5-15.5)
[2018-02-27 05:16] LABS: CREATININE 1.2 mg/dL (0.5-1.0); MAGNESIUM 1.9 mg/dL (1.6-2.3); POTASSIUM 4.8 mmol/l (3.5-5.1)
[2018-02-28] VITALS: BP 133/66
[2018-02-28 06:03] LABS: HEMATOCRIT 29.2 % (37.0-47.0); MEAN CELL VOLUME 93.9 fL CALC (80.0-100.0); MEAN CORPUSCULAR HGB 30.2 pG CALC (26.0-32.0); MEAN CORPUSCULAR HGB CONC 32.2 g/L CALC (32.0-36.0); RED BLOOD COUNT 3.11 mill/uL (4.20-5.60); RED CELL DISTRI WIDTH 15.9 % (11.5-15.5)
[2018-02-28 06:06] LABS: HEMOGLOBIN 9.4 g/dl (12.0-16.0)
[2018-02-28 06:16] LABS: CREATININE 1.1 mg/dL (0.5-1.0); POTASSIUM 4.9 mmol/l (3.5-5.1)
[2018-02-28 07:25] VITALS: BP 113/46
[2018-02-28] MEDS ORDERED: ASPIRIN EC325 MG PO (11:43)
[2018-02-28] MEDS ORDERED: PERCOCET 10/31 COMBO PO (11:43)
[2018-02-28] MEDS ORDERED: RESTORIL15 MG PO (11:43)
[2018-02-28 15:38] VITALS: BP 123/61
== END 2018-02-28 17:41 | DRG 470 ==
LOC: MS2 02-24 10:23
PROVIDERS: Nurse Practitioner Family; ADMIT Orthopaedic Surgery; ATTEND Orthopaedic Surgery
PROC: 0SRC0J9 Replacement of Right Knee Joint with Synthetic Substitute, Cemented, Open Approach (ICD-10-PCS; principal; 2018-02-24)
PROC: 3E0234Z Introduction of Serum, Toxoid and Vaccine into Muscle, Percutaneous Approach (ICD-10-PCS; 2018-02-26)
PROC: 30233N1 Transfusion of Nonautologous Red Blood Cells into Peripheral Vein, Percutaneous Approach (ICD-10-PCS; 2018-02-27)
DX: M17.11 Unilateral primary osteoarthritis, right knee (principal); Z68.43 Body mass index [BMI] 50.0-59.9, adult; D62 Acute posthemorrhagic anemia; I12.9 Hypertensive chronic kidney disease with stage 1 through stage 4 chronic kidney disease, or unspecified chronic kidney disease; N18.3 Chronic kidney disease, stage 3 (moderate); E11.42 Type 2 diabetes mellitus with diabetic polyneuropathy; E11.22 Type 2 diabetes mellitus with diabetic chronic kidney disease; E03.9 Hypothyroidism, unspecified; F32.9 Major depressive disorder, single episode, unspecified; E78.5 Hyperlipidemia, unspecified; E66.01 Morbid (severe) obesity due to excess calories; E83.42 Hypomagnesemia; Z85.038 Personal history of other malignant neoplasm of large intestine; Z96.652 Presence of left artificial knee joint; Z23 Encounter for immunization; K59.03 Drug induced constipation; T40.605A Adverse effect of unspecified narcotics, initial encounter
CPT/HCPCS: J1756; J2710; J3420; P9016

== ENCOUNTER 2018-03-20 09:31 | Observation (INO) | payer MEDICARE ==
[~2018-03-20] VITALS: Ht 160 cm; Wt 127.5 kg
[~2018-03-20 09:31] MED LIST changes: +ASPIRIN EC325 MG PO; +B-12500 MCG IM
[2018-03-20 10:07] VITALS: BP 125/54
[2018-03-20 11:16] LABS: MEAN CELL VOLUME 94.7 fL CALC (80.0-100.0); MEAN CORPUSCULAR HGB 29.6 pG CALC (26.0-32.0); MEAN CORPUSCULAR HGB CONC 31.3 g/L CALC (32.0-36.0); RED BLOOD COUNT 3.38 mill/uL (4.20-5.60); RED CELL DISTRI WIDTH 14.3 % (11.5-15.5)
[2018-03-20 11:41] LABS: ALBUMIN 3.9 g/dL (3.2-5.0); ALKALINE PHOSPHATASE 104 u/l (38-126); ANION GAP 15 (6-22 (CALC)); BILIRUBIN, TOTAL 0.5 mg/dL (0.0-1.4); BUN 18 mg/dL (8-23); BUN/CREATININE RATIO 20 (12-20 (CALC)); CARBON DIOXIDE 25 mmol/l (22-30); CHLORIDE 108 mmol/l (95-108); CREATININE 0.9 mg/dL (0.5-1.0); GFR > 60 ML/MIN (>=60 (CALC)); GFR FOR AFR.AMER. > 60 ML/MIN (>=60 (CALC)); POTASSIUM 4.7 mmol/l (3.5-5.1); SGOT/AST 14 u/l (9-36); SGPT/ALT 24 u/l (11-66); SODIUM 143 mmol/l (137-146)
[2018-03-20 15:50] VITALS: BP 146/76
[2018-03-20 17:23] LABS: C. DIFFICILE TOXIN A&B NEGATIVE (NEGATIVE)
[2018-03-20 19:00] VITALS: BP 142/68
[2018-03-20 19:05] LABS: URINE BILIRUBIN - DIPSTICK NEGATIVE (NEGATIVE); URINE BLOOD DIPSTICK NEGATIVE (NEGATIVE); URINE COLOR YELLOW; URINE GLUCOSE - DIPSTICK NEGATIVE (NEGATIVE); URINE KETONE NEGATIVE (NEGATIVE); URINE LEUK ESTERASE SMALL (Negative); URINE NITRITE - DIPSTICK NEGATIVE (Negative); URINE PROTEIN - DIPSTICK NEGATIVE (NEG-TRACE); URINE UROBILINOGEN - DIPSTICK 0.2 E.U./dL (0.2)
[2018-03-20 19:06] LABS: URINE CLARITY CLEAR
[2018-03-20 19:12] LABS: URINE RBC 0-2 RBC/hpf (0-5); URINE SQUAMOUS EPITHELIAL CELL FEW EPI/hpf (0-FEW)
[2018-03-21 04:30] VITALS: BP 132/62
[2018-03-21 05:21] LABS: HEMATOCRIT 30.7 % (37.0-47.0); HEMOGLOBIN 9.5 g/dl (12.0-16.0); IMMATURE GRANULOCYTES 0.5 % (0.0-5.0); MEAN CELL VOLUME 94.8 fL CALC (80.0-100.0); MEAN CORPUSCULAR HGB 29.3 pG CALC (26.0-32.0); MEAN CORPUSCULAR HGB CONC 30.9 g/L CALC (32.0-36.0); NEUT# 3.39 thou/uL (2.00-7.15); RED BLOOD COUNT 3.24 mill/uL (4.20-5.60); RED CELL DISTRI WIDTH 14.5 % (11.5-15.5)
[2018-03-21 05:38] LABS: ANION GAP 14 (6-22 (CALC)); BUN 13 mg/dL (8-23); BUN/CREATININE RATIO 15 (12-20 (CALC)); CARBON DIOXIDE 25 mmol/l (22-30); CHLORIDE 109 mmol/l (95-108); CREATININE 0.9 mg/dL (0.5-1.0); GFR > 60 ML/MIN (>=60 (CALC)); GFR FOR AFR.AMER. > 60 ML/MIN (>=60 (CALC)); POTASSIUM 4.4 mmol/l (3.5-5.1); SODIUM 143 mmol/l (137-146)
[2018-03-21 07:12] VITALS: BP 143/67
[2018-03-21 16:49] VITALS: BP 128/56
[2018-03-21 19:25] VITALS: BP 144/70
[2018-03-22 04:12] VITALS: BP 135/50
[2018-03-22 08:11] VITALS: BP 152/68
[2018-03-22 08:17] VITALS: BP 152/68
== END 2018-03-22 13:32 | disposition home or self-care (01) ==
LOC: MS2 09:31
PROVIDERS: Nurse Practitioner Family; ADMIT Internal Medicine; ATTEND Internal Medicine
DX: A04.5 Campylobacter enteritis (principal); Z68.42 Body mass index [BMI] 45.0-49.9, adult; E66.01 Morbid (severe) obesity due to excess calories; E86.0 Dehydration; E11.22 Type 2 diabetes mellitus with diabetic chronic kidney disease; I12.9 Hypertensive chronic kidney disease with stage 1 through stage 4 chronic kidney disease, or unspecified chronic kidney disease; N18.3 Chronic kidney disease, stage 3 (moderate); E11.40 Type 2 diabetes mellitus with diabetic neuropathy, unspecified; E03.9 Hypothyroidism, unspecified; E78.5 Hyperlipidemia, unspecified; M19.90 Unspecified osteoarthritis, unspecified site; F32.9 Major depressive disorder, single episode, unspecified; Z85.038 Personal history of other malignant neoplasm of large intestine; Z96.651 Presence of right artificial knee joint; Z79.84 Long term (current) use of oral hypoglycemic drugs

== ENCOUNTER 2018-03-28 08:41 | Emergency (ER) | payer MEDICARE ==
[~2018-03-28] VITALS: Ht 160 cm; Wt 125.9 kg
[2018-03-28 09:51] LABS: HEMATOCRIT 35.3 % (37.0-47.0); HEMOGLOBIN 11.1 g/dl (12.0-16.0); IMMATURE GRANULOCYTES 0.6 % (0.0-5.0); MEAN CELL VOLUME 93.6 fL CALC (80.0-100.0); MEAN CORPUSCULAR HGB 29.4 pG CALC (26.0-32.0); MEAN CORPUSCULAR HGB CONC 31.4 g/L CALC (32.0-36.0); NEUT# 6.38 thou/uL (2.00-7.15); RED BLOOD COUNT 3.77 mill/uL (4.20-5.60); RED CELL DISTRI WIDTH 14.6 % (11.5-15.5)
[2018-03-28 10:07] LABS: ALBUMIN 4.1 g/dL (3.2-5.0); ALKALINE PHOSPHATASE 106 u/l (38-126); ANION GAP 17 (6-22 (CALC)); BILIRUBIN, TOTAL 0.5 mg/dL (0.0-1.4); BUN 16 mg/dL (8-23); BUN/CREATININE RATIO 17 (12-20 (CALC)); CARBON DIOXIDE 25 mmol/l (22-30); CHLORIDE 106 mmol/l (95-108); CREATININE 0.9 mg/dL (0.5-1.0); GFR > 60 ML/MIN (>=60 (CALC)); GFR FOR AFR.AMER. > 60 ML/MIN (>=60 (CALC)); SGOT/AST 15 u/l (9-36); SGPT/ALT 22 u/l (11-66); SODIUM 143 mmol/l (137-146); TOTAL PROTEIN 7.1 g/dL (6.3-8.2)
[2018-03-28 10:10] LABS: POTASSIUM 5.2 mmol/l (3.5-5.1)
[2018-03-28 10:19] LABS: MYOGLOBIN 59 ng/mL (0 - 62)
[2018-03-28 12:11] VITALS: BP 146/62
== END 2018-03-28 12:27 | disposition home or self-care (01) ==
LOC: ED 08:41
PROVIDERS: Emergency Medicine
DX: F41.9 Anxiety disorder, unspecified (principal); E11.9 Type 2 diabetes mellitus without complications; I10 Essential (primary) hypertension; N28.9 Disorder of kidney and ureter, unspecified; E07.9 Disorder of thyroid, unspecified; Z85.038 Personal history of other malignant neoplasm of large intestine; Z90.49 Acquired absence of other specified parts of digestive tract; Z60.2 Problems related to living alone

== ENCOUNTER 2020-02-01 15:36 | Observation (INO) | payer MEDICARE ==
[~2020-02-01] VITALS: Ht 160 cm; Wt 139.0 kg
[2020-02-01 16:41] LABS: HEMATOCRIT 32.9 % (37.0-47.0); HEMOGLOBIN 10.5 g/dl (12.0-16.0); IMMATURE GRANULOCYTES 0.5 % (0.0-5.0); MEAN CORPUSCULAR HGB 29.2 pG CALC (26.0-32.0); MEAN CORPUSCULAR HGB CONC 31.9 g/dL CAL (32.0-36.0); NEUT# 6.52 thou/uL (2.00-7.15); RED BLOOD COUNT 3.6 mill/uL (4.20-5.60)
[2020-02-01 16:43] LABS: MEAN CELL VOLUME 91.4 fL CALC (80.0-100.0)
[2020-02-01 16:47] VITALS: BP 142/54
[2020-02-01 17:04] LABS: ALBUMIN 4.1 g/dL (3.2-5.0); BILIRUBIN, TOTAL 0.5 mg/dL (0.0-1.4); CREATININE 1.2 mg/dL (0.5-1.0); POTASSIUM 4.4 mmol/l (3.5-5.1); TOTAL PROTEIN 7.2 g/dL (6.3-8.2)
[2020-02-01 19:30] VITALS: BP 120/40
--- NOTE | 2020-02-01 20:30 | NUR ---
PT RESTOING IN BED, ALERT AND OREINTED. RESPIRATIONS EVEN AND UNLABORED ON RA, LUNGS SOUND CLEAR. PEDAL PULSES ARE STRONG. PT DENIES ANY PAIN OR DISCOMFORT AT THIS TIME. SAFETY PRECAUTIONS IN PLACE. WILL CONTINUE TO MONITOR.
[2020-02-01 23:50] VITALS: BP 129/61
--- NOTE | 2020-02-02 00:05 | NUR ---
PT RESTING IN BED FREE OF DISTRESS, SAFETY PRECAUTIONS IN PLACE. WILL CONTINUE TO MONITOR.
[2020-02-02 04:17] VITALS: BP 112/53
--- NOTE | 2020-02-02 04:17 | NUR ---
PT RESTING IN BED FREE OF DISTRESS, SAFETY PRECAUTIONS IN PLACE. WILL CONTINUE TO MONITOR.
--- NOTE | 2020-02-02 08:35 | NUR ---
patient is alert and oriented x 3, laying in bed; no c/o pain noted; call feliciano within reach; no distress noted.
[2020-02-02 11:55] VITALS: BP 133/72
--- NOTE | 2020-02-02 15:42 | NUR ---
patient alet and oriented x 3, ambulatory, no c/o pain noted, no distress noted; discharge instructions given; patient verbalized discharge instructions; IV discontinued to Left arm; catheter tip intact; tele monitor discontinued; patient discharged with belongings via wheelchair accompanied by staff.
[2020-05-03] MEDS ORDERED: AMITRIPTYLIN25 MG PO (16:52)
[2020-05-03] MEDS ORDERED: METFORMIN500 M2 PO (16:52)
[2020-05-03] MEDS ORDERED: LEVOTHYROXIN50 MC1 PO (16:52)
[2020-05-03] MEDS ORDERED: TOPROL XL25 M1 PO (16:54)
[2020-05-03] MEDS ORDERED: NOVOLIN 70/30 SC ×2 (16:55)
== END 2020-02-02 15:02 | disposition home or self-care (01) ==
LOC: MS2 15:36
PROVIDERS: ADMIT Internal Medicine; ATTEND Internal Medicine
DX: S09.90XA Unspecified injury of head, initial encounter (principal); I10 Essential (primary) hypertension; Z68.43 Body mass index [BMI] 50.0-59.9, adult; E11.40 Type 2 diabetes mellitus with diabetic neuropathy, unspecified; E03.9 Hypothyroidism, unspecified; E78.5 Hyperlipidemia, unspecified; E66.01 Morbid (severe) obesity due to excess calories; V18.0XXA Pedal cycle driver injured in noncollision transport accident in nontraffic accident, initial encounter; Y93.55 Activity, bike riding; Z11.59 Encounter for screening for other viral diseases
CPT/HCPCS: G0378; G0379

== ENCOUNTER 2024-07-31 15:45 | Observation (INO) | payer MEDICARE ==
[~2024-07-31] VITALS: Ht 162.6 cm; Wt 130.6 kg
[~2024-07-31 15:45] MED LIST changes: +AMITRIPTYLINE H50 MG PO; +BUPROPION HCL150 MG PO; +FREESTYLE LIBRE1 KI1; +LEVOTHYROXIN50 MC1 PO; +LEVOTHYROXIN75 MC1 PO; +LEVOTHYROXIN88 MC1 PO; +LOSARTAN POTASS50 MG PO; +METFORMIN500 M2 PO; +NOVOLIN 70/30 INNLT SC; +TOPROL XL25 M1 PO; +WELLBUTRIN XL300 MG PO; +ZOCOR20 M1 PO
[2024-07-31 15:51] VITALS: BP 99/34
--- NOTE | 2024-07-31 15:51 | NUR ---
ROSALINDA TO ROOM 1 VIA EMS
[2024-07-31 15:55] VITALS: BP 64/35
[2024-07-31] MEDS ORDERED: SODIUM CHLORIDE 0.9% 1,000 ML IV ONE ×2 (16:00→18:35)
[2024-07-31 16:02] VITALS: BP 86/35
[2024-07-31 16:16] VITALS: BP 104/39
[2024-07-31 16:36] LABS: BASO% 0.4 % (0-3); EOS% 2.5 % (0-8); HEMATOCRIT 31.1 % (37.0-47.0); HEMOGLOBIN 9.4 g/dl (12.0-16.0); IMMATURE GRANULOCYTES 0.2 % (0.0-5.0); LYMPH% 18.7 % (15-41); MEAN CELL VOLUME 94.5 fL CALC (80.0-100.0); MEAN CORPUSCULAR HGB 28.6 pG CALC (26.0-32.0); MEAN CORPUSCULAR HGB CONC 30.2 g/dL CAL (32.0-36.0); NEUT# 6.98 thou/uL (2.00-7.15); NEUT% 69.2 % (42-76); RED BLOOD COUNT 3.29 mill/uL (4.20-5.60); RED CELL DISTRI WIDTH 14.7 % (11.5-15.5)
[2024-07-31 16:46] VITALS: BP 95/36
[2024-07-31 16:50] LABS: ALBUMIN 3.4 g/dL (3.2-5.0); BILIRUBIN, TOTAL 0.5 mg/dL (0.02-1.3); CREATININE 1.9 mg/dL (0.5-1.0); POTASSIUM 5.1 mmol/l (3.5-5.1)
--- NOTE | 2024-07-31 18:16 | NUR ---
UA collected via Straight Cath and sent to Lab
[2024-07-31 18:37] LABS: URINE BILIRUBIN - DIPSTICK Negative (NEGATIVE); URINE BLOOD DIPSTICK Negative (NEGATIVE); URINE COLOR Yellow; URINE GLUCOSE - DIPSTICK Negative (NEGATIVE); URINE KETONE Negative (NEGATIVE); URINE LEUK ESTERASE Negative (NEGATIVE); URINE NITRITE - DIPSTICK Negative (Negative); URINE PH 5.5 (4.5-8.0); URINE PROTEIN - DIPSTICK Negative (NEG-TRACE); URINE SPECIFIC GRAVITY 1.015; URINE UROBILINOGEN - DIPSTICK 0.2 E.U./dL (0.2)
--- NOTE | 2024-07-31 21:36 | NUR ---
report given to Nurse Alfaro on MS2 unit.
[2024-07-31 21:53] VITALS: BP 142/50
--- NOTE | 2024-07-31 22:51 | NUR ---
PATIENT CAME IN TO MS2 AT 2152 FROM ER. BED SIDE ASSESSMENT COMPLETE. A&OX3, CAN MAKE NEEDS KNOWN, NONE NEEDED AT THIS TIME. RESP EVEN AND UNLABORED. BOWEL SOUNDS PRESENT. PERIPHERAL PULSES STRONG AND EQUAL. SAFTY PRECAUTIONS IN PLACE. BED AT LOWEST POSITION. CALL LIGHT WITH IN REACH.
[2024-07-31] MEDS ORDERED: MAGNESIUM HYDROXIDE 30 ML UDC PO PRN (23:10)
[2024-07-31] MEDS ORDERED: SODIUM CHLORIDE 0.9% 1,000 ML IV PRN (23:10)
[2024-07-31] MEDS ORDERED: ACETAMINOPHEN 325 MG/TAB PO PRN (23:10)
--- NOTE | 2024-08-01 00:20 | NUR ---
PATIENT OBSERVED TO BE RESTING IN BED WATCHING TV. PATIENT CAN MAKE NEEDS KNOWN NONE NEEDED AT THIS TIME. EQUAL UNLABORED RESP, NO VISUAL SIGNS OF DISTRESS. BED AT LOWEST POSITION. CALL LIGHT WITH IN REACH.
[2024-08-01 04:32] VITALS: BP 135/69
--- NOTE | 2024-08-01 04:32 | NUR ---
PATIENT OBSERVED TO BE RESTING IN BED WITH EYES CLOSED. EQUAL UNLABORED RESP NO VISUAL SIGNS OF DISTRESS. BED AT LOWEST POSITION. CALL LIGHT WITH IN REACH.
[2024-08-01 07:05] VITALS: BP 113/61
--- NOTE | 2024-08-01 07:10 | NUR ---
PATIENT LYING IN BED AWAKE. PATIENT A&OX3. BREATHING UNLABORED ON ROOM AIR. NO IV SITE AT THIS TIME DUE TO BEING DISLODGE ON THE WAY TO BATHROOM. PT STATES TO HAVE SOME BACK PAIN WITH MOVEMENT BUT NOT ENOUGH TO WANT SOMETHING FOR PAIN. DENIES ANY N/D/V AT THIS TIME. MEDICATION REVIEWED. PERSONAL ITEMS WELL CALL LIGHT WITHIN REACH. BED IN LOWEST POSITION. NO OTHER NEEDS AT THIS TIME. POC ONGOING.
[2024-08-01] MEDS ORDERED: DEXTROSE 250 ML IV PRN (09:15)
[2024-08-01 10:10] LABS: HEMATOCRIT 30.5 % (37.0-47.0); HEMOGLOBIN 9.5 g/dl (12.0-16.0); MEAN CELL VOLUME 94.7 fL CALC (80.0-100.0); MEAN CORPUSCULAR HGB 29.5 pG CALC (26.0-32.0); MEAN CORPUSCULAR HGB CONC 31.1 g/dL CAL (32.0-36.0); RED BLOOD COUNT 3.22 mill/uL (4.20-5.60); RED CELL DISTRI WIDTH 14.6 % (11.5-15.5)
[2024-08-01] MEDS ORDERED: buPROPion HCL 150 MG TAB SR PO SCH (10:30)
[2024-08-01] MEDS ORDERED: LEVOTHYROXINE SODIUM 75 MCG/TAB PO SCH (10:30)
[2024-08-01 10:44] LABS: ALBUMIN 3.3 g/dL (3.2-5.0); BILIRUBIN, TOTAL 0.4 mg/dL (0.02-1.3); CREATININE 1.6 mg/dL (0.5-1.0); POTASSIUM 4.7 mmol/l (3.5-5.1); TOTAL PROTEIN 5.9 g/dL (6.3-8.2)
[2024-08-01] MEDS ORDERED: INSULIN LISPRO 100 UNITS/ML ML SC SCH (11:00)
[2024-08-01] MEDS ORDERED: GABAPENTIN 300 MG/CAP PO SCH (11:00)
[2024-08-01] MEDS ORDERED: GABAPENTIN 100 MG/CAP PO SCH (11:00)
--- NOTE | 2024-08-01 12:18 | NUR ---
PATIENT UP SITTING IN RECLINER WATCHING TV. BREATHING UNLABORED ON ROOM AIR. IV IN LEFT HAND INFUSING FLUIDS PER EMAR;SITE CLEAN AND INTACT. PT DENIES ANY PAIN OR N/D/V AT THIS TIME. STATES TO HAVE TOLERABLE BACK PAIN. PERSONAL ITEMS WELL CALL LIGHT WITHIN REACH;PT VERBALIZED UNDERSTANDING OF USE. POC ONGOING.
[2024-08-01 15:32] VITALS: BP 135/64
--- NOTE | 2024-08-01 16:39 | NUR ---
PATIENT LYING IN BED WATCHING TV. BREATHING UNLABORED ON ROOM AIR. IV IN LEFT HAND INFUSING FLUIDS PER EMAR;SITE CLEAN AND INTACT. PT DENIES ANY PAIN OR N/D/V AT THIS TIME. BED IN LOWEST POSITION. PERSONAL ITEMS WELL CALL LIGHT WITHIN REACH;PT UNDERSTANDS USE. POC ONGOING.
[2024-08-01 18:03] VITALS: BP 128/69; BP 152/65
--- NOTE | 2024-08-01 19:00 | NUR ---
REPORT RECEIVED FROM Tramaine CANDELARIO LPN
--- NOTE | 2024-08-01 20:00 | NUR ---
PATIENT RESTING IN BED, DENIES ANY CURRENT COMPLAINTS. IVF INFUSING PER EMAR. RESPIRATIONS EVEN AND UNLABORED, RISE AND FALL OF CHEST NOTED. PATIENT WATCHING TV. CALL LIGHT WITHIN PATIENTS REACH.
[2024-08-01] MEDS ORDERED: ENOXAPARIN SODIUM 40 MG/0.4 ML SYR SC SCH (21:00)
--- NOTE | 2024-08-02 | NUR ---
PATIENT SLEEPING, SOFT SNORING INTERMITTENTLY. RESPIRATIOSN EVEN AND UNLABORED. RISE AND FALL OF CHEST NOTED. CALL LIGHT WITHIN REACH.
[2024-08-02 04:03] VITALS: BP 135/51
--- NOTE | 2024-08-02 04:20 | NUR ---
LAB AT BEDSIDE OBTAINING MORNING LABS.
[2024-08-02 04:57] LABS: HEMATOCRIT 28.7 % (37.0-47.0); MEAN CELL VOLUME 94.7 fL CALC (80.0-100.0); MEAN CORPUSCULAR HGB 29.7 pG CALC (26.0-32.0); MEAN CORPUSCULAR HGB CONC 31.4 g/dL CAL (32.0-36.0); RED BLOOD COUNT 3.03 mill/uL (4.20-5.60); RED CELL DISTRI WIDTH 14.7 % (11.5-15.5)
[2024-08-02 05:13] LABS: ALBUMIN 3.3 g/dL (3.2-5.0); BILIRUBIN, TOTAL 0.4 mg/dL (0.02-1.3); CREATININE 1.4 mg/dL (0.5-1.0); POTASSIUM 4.7 mmol/l (3.5-5.1); TOTAL PROTEIN 6.1 g/dL (6.3-8.2)
[2024-08-02 06:15] VITALS: BP 142/54
--- NOTE | 2024-08-02 07:22 | NUR ---
PATIENT LYING AWAKE IN BED WATCHING TV. BREATHING UNLABORED ON ROOM AIR. IV IN LEFT HAND INFUSING FLUIDS PER EMAR;SITE CLEAN AND INTACT. PT DENIES ANY PAIN OR N/D/V AT THIS TIME. STATES TO BE VERY TIRED THIS MORNING DUE TO NOT GETTING ANY REST LAST NIGHT. ENCOURAGED PT TO TRY AND GET SOME REST TODAY. NO OTHER NEEDS AT THIS TIME. BED IN LOWEST POSITION. PERSONAL ITEMS WELL CALL LIGHT WITHIN REACH. POC ONGOING.
[2024-08-02 10:59] VITALS: BP 158/75
--- NOTE | 2024-08-02 12:51 | NUR ---
PATIENT LYING IN BED WATCHING TV. BREATHING UNLABORED ON ROOM AIR. IV IN LEFT HAND INFUSING FLUIDS PER EMAR;SITE CLEAN AND INTACT. PT DENIES ANY PAIN OR N/D/V AT THIS TIME. BED IN LOWEST POSITION. PERSONAL ITEMS WELL CALL LIGHT WITHIN REACH. BOYFRIEND AT BEDSIDE. NO OTHER NEEDS AT THIS TIME. POC ONGOING.
[2024-08-02 16:02] VITALS: BP 127/92
--- NOTE | 2024-08-02 16:31 | NUR ---
PATIENT SITTING UP IN RECLINER WATCHING TV. BREATHING UNLABORED ON ROOM AIR. IV IN LEFT HAND SL;SITE CLEAN AND INTACT. PT DENIES ANY PAIN OR N/D/V AT THIS TIME. PERSONAL ITEMS WELL CALL LIGHT WITHIN REACH. NO OTHER NEEDS AT THIS TIME. POC ONGOING.
[2024-08-02 18:39] VITALS: BP 147/50
[2024-08-02 20:00] VITALS: BP 142/64; BP 152/64
--- NOTE | 2024-08-02 20:00 | NUR ---
RECEIVED REPORT FROM NURSE HERACLIO, PATIENT SITTING IN CHAIR, DENIES PAIN AT THIS TIME, PATIENT ALERT ORIENTED, USES BEDSIDE COMODE, IV ON LEFT HAND PATNET FLUSHES WELL, PATIENT DENIES DIZZINESS, USES WALKER TO AMBULATE, 08/02 CALL LIGHT IN REACHED, SAFETY PRECAUTION IN PLACED.
--- NOTE | 2024-08-02 23:30 | NUR ---
PATIENT RESTING IN BED, IV INFUSING NS @ 20CC/HR, NO DISCOMFORTS NOTED AT THIS TIME, CALL LIGHT WITHIN REACHED.
[2024-08-03] VITALS (8 sets, daily range): BP systolic 116–137; BP diastolic 43–57
--- NOTE | 2024-08-03 04:03 | NUR ---
PATIENT RESTING IN BED EYES CLOSED, BREATHING UNLABORED CALL LIGHT WITHIN REACHED.
--- NOTE | 2024-08-03 07:35 | NUR ---
patient a/o x3; room air; breathing unlabored and even; patient laying supine in bed watching tv; denied any pain; deneid any n/d/v at thistime; no complaints; iv site clean and intact running with NS @220; no s/s of distress; call light within reach, verbalized understanding on how jean se, personal item within reach; bed in lowest postion;safety measures in place
[2024-08-03 08:42] LABS: HEMATOCRIT 29.1 % (37.0-47.0); MEAN CELL VOLUME 95.1 fL CALC (80.0-100.0); MEAN CORPUSCULAR HGB 29.4 pG CALC (26.0-32.0); MEAN CORPUSCULAR HGB CONC 30.9 g/dL CAL (32.0-36.0); RED BLOOD COUNT 3.06 mill/uL (4.20-5.60); RED CELL DISTRI WIDTH 14.6 % (11.5-15.5)
[2024-08-03 09:09] LABS: ALBUMIN 3.1 g/dL (3.2-5.0); BILIRUBIN, TOTAL 0.4 mg/dL (0.02-1.3); CREATININE 1.2 mg/dL (0.5-1.0); POTASSIUM 4.9 mmol/l (3.5-5.1); TOTAL PROTEIN 5.6 g/dL (6.3-8.2)
[2024-08-03] MEDS ORDERED: INSULIN NPH ISOPHANE & REG (HU 100 UNITS/ML SC SCH ×2 (11:00→17:00)
--- NOTE | 2024-08-03 11:52 | NUR ---
PATIENT A/O X3; ROOM AIR; BREATHING UNLABORED AND EVEN; DENIED ANY PAIN; DNEIED ANY N/D/V AT THIS TIME; PATIENT SITTING IN CHAIR NEXT TO BED; DENIED ANY COMPLAINTS; IV SITE CLEAN AND INTCAT SALINE LOCKED AT THIS TIME; NO S.S OF DISTRESS; CALL LIGHT WITHIN REACH,.VERBALIZED UNDERSTANDING ONHOW TO USE, PERSONAL ITEMS WITHIN REACH; PATEINT TOLEARATE HER MEDICATIONS; BED IN LOWEST POSTION;SAFETY MEASURES IN PLACE
--- NOTE | 2024-08-03 20:01 | NUR ---
Pt is alert and orient and able to make needs known. Pt is laying on her back wathcing television. No distress noted. NO complaint of pain or discomfort at this time. Pt is breathing even and non-labored. Bed in low position with call light within reach.
--- NOTE | 2024-08-04 00:25 | NUR ---
Pt is laying in bed with her eyes closed. No complaint of pain or discomfort at this time. No distress noted. Breathing remains even and non-labored. Bed in low position with call light within reach.
--- NOTE | 2024-08-04 04:09 | NUR ---
Pt is resting in bed with her eyes closed. No complaint of pain or discomfort at this time. No distress noted. Breathing remains even and non-labored. Bed in low position with call light within reach.
[2024-08-04 05:16] VITALS: BP 122/56
[2024-08-04 05:34] LABS: BASO% 0.6 % (0-3); EOS% 5.1 % (0-8); HEMATOCRIT 28.9 % (37.0-47.0); HEMOGLOBIN 8.9 g/dl (12.0-16.0); IMMATURE GRANULOCYTES 0.8 % (0.0-5.0); LYMPH% 22.2 % (15-41); MEAN CELL VOLUME 94.1 fL CALC (80.0-100.0); MEAN CORPUSCULAR HGB CONC 30.8 g/dL CAL (32.0-36.0); MONO% 11.2 % (2-13); NEUT# 3.87 thou/uL (2.00-7.15); NEUT% 60.1 % (42-76); RED BLOOD COUNT 3.07 mill/uL (4.20-5.60); RED CELL DISTRI WIDTH 14.7 % (11.5-15.5)
[2024-08-04 05:59] LABS: BILIRUBIN, TOTAL 0.3 mg/dL (0.02-1.3); CREATININE 1.3 mg/dL (0.5-1.0); MAGNESIUM 1.6 mg/dL (1.6-2.3); POTASSIUM 4.5 mmol/l (3.5-5.1); TOTAL PROTEIN 5.7 g/dL (6.3-8.2)
--- NOTE | 2024-08-04 06:58 | NUR ---
REPORT RECEIVED FROM PARKER SENIOR
[2024-08-04 07:30] VITALS: BP 141/60
--- NOTE | 2024-08-04 08:40 | NUR ---
PT OOB RESTING IN RECLINER,A&O X3;PT DENIES ANY CURRENT PAIN OR DISCOMFORTS,PAIN SCALE AND REPORTING EDUCATED;ASSESSMENT COMPLETED;RESPIRATIONS EVEN AND UNLABORED ON RA,CLEAR LUNG SOUNDS;ABDOMEN SOFT ON PALPATION AND ACTIVE IN ALL 4 QUADRANTS;STRONG PEDAL PULSES;#22G TO LH FLUSHED AND PATENT;ACCUCHECK 94, NO COVERAGE NEEDED;[facility] AWAITING BEDSIDE ASSIGNMENT AND ACCOUNTING ANALYST TIME;PT DENIES ANY ADDITIONAL NEEDS AND IS ENCOURAGED TO CALL FOR ASSISTANCE IF NEEDED;CALL LIGHT IN REACH;FREQUENT ROUNDS MADE.
--- NOTE | 2024-08-04 10:56 | NUR ---
ALL DISCHARGE INSTRUCTIONS PROVIDED AT THIS TIME. [facility] AT APPROX 11:30-12PM. PT TO STOP TAKING METFORMIN, CONTINUE ALL OTHER HOME MEDICATIONS, STAY WELL HYDRATED AND F/U WITH PCP. PT VERBALIZES UNDERSTANDING AND DENIES ANY ADDITIONAL QUESTIONS OR NEEDS;IV SITE REMOVED WITH CATHETER INTACT;PT ENCOURAGED TO CALL FOR ASSISTANCE IF NEEDED;CALL LIGHT IN REACH;FREQUENT ROUNDS MADE.
--- NOTE | 2024-08-04 11:04 | NUR ---
[facility] SPOKE WITH PARKER MADRIGAL
--- NOTE | 2024-08-04 11:28 | NUR ---
Discharge instructions given. Patient verbalizes understanding of same. Discharged in stable condition via [facility] to [facility] with *Other. All belongings sent with pt. PT TRANSPORTED TO [facility]IA [facility] IN STABLE CONDITION.ALL PERSONAL BELONGINGS LEFT WITH PT AT THIS TIME.
== END 2024-08-04 11:27 ==
LOC: ED 15:45 → ED-I 16:20 → ED 16:20 → MS2 18:48
PROVIDERS: Family Medicine; Nurse Practitioner Family; ADMIT Internal Medicine; ATTEND Internal Medicine
DX: N17.9 Acute kidney failure, unspecified (principal); E86.0 Dehydration; I95.9 Hypotension, unspecified; E87.1 Hypo-osmolality and hyponatremia; I12.9 Hypertensive chronic kidney disease with stage 1 through stage 4 chronic kidney disease, or unspecified chronic kidney disease; E11.22 Type 2 diabetes mellitus with diabetic chronic kidney disease; N18.9 Chronic kidney disease, unspecified; D63.1 Anemia in chronic kidney disease; E11.42 Type 2 diabetes mellitus with diabetic polyneuropathy; E11.40 Type 2 diabetes mellitus with diabetic neuropathy, unspecified; E78.5 Hyperlipidemia, unspecified; F32.A Depression, unspecified; M19.91 Primary osteoarthritis, unspecified site; E66.01 Morbid (severe) obesity due to excess calories; Z85.038 Personal history of other malignant neoplasm of large intestine; Z79.4 Long term (current) use of insulin; Z79.84 Long term (current) use of oral hypoglycemic drugs; Z91.81 History of falling
CPT/HCPCS: J0696; J1650; J1815

== ENCOUNTER 2024-08-24 11:58 | Observation (INO) | payer MEDICARE ==
[~2024-08-24] VITALS: Ht 162.6 cm; Wt 125.0 kg
[2024-08-24] VITALS (15 sets, daily range): BP systolic 95–147; BP diastolic 35–105
[2024-08-24 13:16] LABS: BASO% 0.4 % (0-3); EOS% 7.7 % (0-8); HEMOGLOBIN 10.4 g/dl (12.0-16.0); IMMATURE GRANULOCYTES 0.7 % (0.0-5.0); LYMPH% 15.7 % (15-41); MEAN CORPUSCULAR HGB 29.2 pG CALC (26.0-32.0); MEAN CORPUSCULAR HGB CONC 29.2 g/dL CAL (32.0-36.0); MONO% 8.8 % (2-13); NEUT# 7.23 thou/uL (2.00-7.15); NEUT% 66.7 % (42-76); RED BLOOD COUNT 3.56 mill/uL (4.20-5.60); RED CELL DISTRI WIDTH 15.4 % (11.5-15.5)
[2024-08-24 13:19] LABS: HEMATOCRIT 35.6 % (37.0-47.0)
[2024-08-24] MEDS ORDERED: SODIUM CHLORIDE 0.9% 1,000 ML IV ONE (13:25)
[2024-08-24 13:28] LABS: ANION GAP 13 (6-22 (CALC)); CARBON DIOXIDE 27 mmol/l (22-30); CHLORIDE 104 mmol/l (95-108); CREATININE 1.7 mg/dL (0.5-1.0); ESTIMATED GFR 30 ML/MIN (>=90 (CALC)); POTASSIUM 4.8 mmol/l (3.5-5.1); SGOT/AST 23 u/l (9-36); SODIUM 139 mmol/l (137-146)
[2024-08-24 13:33] LABS: ALBUMIN 4.1 g/dL (3.2-5.0); ALKALINE PHOSPHATASE 113 u/l (38-126); BILIRUBIN, TOTAL 0.6 mg/dL (0.02-1.3); BUN 40 mg/dL (8-23); BUN/CREATININE RATIO 24 (12-20 (CALC)); TOTAL PROTEIN 7.3 g/dL (6.3-8.2)
[2024-08-24 13:54] LABS: URINE BILIRUBIN - DIPSTICK Negative (NEGATIVE); URINE BLOOD DIPSTICK Negative (NEGATIVE); URINE GLUCOSE - DIPSTICK 500 mg/dL (NEGATIVE); URINE KETONE Negative (NEGATIVE); URINE LEUK ESTERASE Negative (NEGATIVE); URINE NITRITE - DIPSTICK Negative (Negative); URINE PH 5.5 (4.5-8.0); URINE PROTEIN - DIPSTICK Negative (NEG-TRACE); URINE SPECIFIC GRAVITY 1.015; URINE UROBILINOGEN - DIPSTICK 0.2 E.U./dL (0.2)
[2024-08-24 13:57] LABS: URINE COLOR Yellow
[2024-08-24] MEDS ORDERED: LOPRESSOR25 M1 PO (15:10)
[2024-08-24] MEDS ORDERED: MOTRIN800 MG PO (15:10)
[2024-08-24] MEDS ORDERED: METFORMIN HCL500 M1 PO (15:10)
[2024-08-24] MEDS ORDERED: FERROUS SULFAT325 MG PO (15:12)
[2024-08-24] MEDS ORDERED: BENZONATATE150 MG PO (15:12)
[2024-08-24] MEDS ORDERED: MAGNESIUM HYDROXIDE 30 ML UDC PO PRN (15:50)
[2024-08-24] MEDS ORDERED: SODIUM CHLORIDE 0.9% 1,000 ML IV PRN (15:50)
[2024-08-24] MEDS ORDERED: ACETAMINOPHEN 325 MG/TAB PO PRN (15:50)
[2024-08-24] MEDS ORDERED: INSULIN LISPRO 100 UNITS/ML ML SC SCH (17:00)
[2024-08-24] MEDS ORDERED: METOPROLOL TARTRATE 25 MG/TAB PO SCH (21:11)
[2024-08-24] MEDS ORDERED: AMITRIPTYLINE HCL 25 MG TAB PO SCH (21:11)
[2024-08-24] MEDS ORDERED: Heparin SODIUM (Porcine) 5,000 UNITS/ML SDV SC SCH (22:00)
[2024-08-25] VITALS (8 sets, daily range): BP systolic 115–144; BP diastolic 42–59
[2024-08-25 05:30] LABS: ALBUMIN 3.1 g/dL (3.2-5.0); BASO% 0.5 % (0-3); BILIRUBIN, TOTAL 0.5 mg/dL (0.02-1.3); CREATININE 1.8 mg/dL (0.5-1.0); EOS% 6.5 % (0-8); HEMOGLOBIN 9.4 g/dl (12.0-16.0); IMMATURE GRANULOCYTES 0.2 % (0.0-5.0); LYMPH% 21.2 % (15-41); MAGNESIUM 2.3 mg/dL (1.6-2.3); MEAN CELL VOLUME 94.9 fL CALC (80.0-100.0); MEAN CORPUSCULAR HGB 29.7 pG CALC (26.0-32.0); MEAN CORPUSCULAR HGB CONC 31.3 g/dL CAL (32.0-36.0); MONO% 9.2 % (2-13); NEUT# 5.19 thou/uL (2.00-7.15); NEUT% 62.4 % (42-76); POTASSIUM 4.7 mmol/l (3.5-5.1); RED BLOOD COUNT 3.16 mill/uL (4.20-5.60); RED CELL DISTRI WIDTH 15.5 % (11.5-15.5); TOTAL PROTEIN 5.7 g/dL (6.3-8.2)
[2024-08-25] MEDS ORDERED: MELATONIN 3 MG/TAB PO PRN (21:25)
[2024-08-26] VITALS (14 sets, daily range): BP systolic 96–160; BP diastolic 38–60
[2024-08-26 05:45] LABS: BASO% 0.6 % (0-3); EOS% 7.7 % (0-8); HEMATOCRIT 30.1 % (37.0-47.0); HEMOGLOBIN 9.5 g/dl (12.0-16.0); IMMATURE GRANULOCYTES 0.3 % (0.0-5.0); LYMPH% 26.1 % (15-41); MEAN CELL VOLUME 93.2 fL CALC (80.0-100.0); MEAN CORPUSCULAR HGB 29.4 pG CALC (26.0-32.0); MEAN CORPUSCULAR HGB CONC 31.6 g/dL CAL (32.0-36.0); MONO% 9.8 % (2-13); NEUT# 3.72 thou/uL (2.00-7.15); NEUT% 55.5 % (42-76); RED BLOOD COUNT 3.23 mill/uL (4.20-5.60); RED CELL DISTRI WIDTH 15.6 % (11.5-15.5)
[2024-08-26 06:14] LABS: ALBUMIN 3.1 g/dL (3.2-5.0); BILIRUBIN, TOTAL 0.4 mg/dL (0.02-1.3); CREATININE 1.5 mg/dL (0.5-1.0); MAGNESIUM 2.2 mg/dL (1.6-2.3); POTASSIUM 4.5 mmol/l (3.5-5.1); TOTAL PROTEIN 5.9 g/dL (6.3-8.2)
[2024-08-26] MEDS ORDERED: ONDANSETRON HCl 4 MG/2 ML SDV IV PRN (17:50)
[2024-08-27] VITALS (9 sets, daily range): BP systolic 119–138; BP diastolic 40–58
[2024-08-27 08:39] LABS: ALBUMIN 3.5 g/dL (3.2-5.0); CREATININE 1.3 mg/dL (0.5-1.0); POTASSIUM 4.6 mmol/l (3.5-5.1); TOTAL PROTEIN 6.3 g/dL (6.3-8.2)
[2024-08-27 08:47] LABS: BILIRUBIN, TOTAL 0.6 mg/dL (0.02-1.3)
[2024-08-27 08:48] LABS: BASO% 0.5 % (0-3); EOS% 5.6 % (0-8); HEMATOCRIT 31.6 % (37.0-47.0); HEMOGLOBIN 10.1 g/dl (12.0-16.0); IMMATURE GRANULOCYTES 0.3 % (0.0-5.0); LYMPH% 22.3 % (15-41); MEAN CELL VOLUME 92.9 fL CALC (80.0-100.0); MEAN CORPUSCULAR HGB 29.7 pG CALC (26.0-32.0); MONO% 9.6 % (2-13); NEUT% 61.7 % (42-76); RED BLOOD COUNT 3.4 mill/uL (4.20-5.60); RED CELL DISTRI WIDTH 15.7 % (11.5-15.5)
[2024-08-27] MEDS ORDERED: PANTOPRAZOLE SODIUM Sesquihydr 40 MG/TAB PO SCH (10:00)
[2024-08-27] MEDS ORDERED: metroNIDAZOLE 500 MG/TAB PO SCH (10:00)
[2024-08-28 00:59] VITALS: BP 123/40
[2024-08-28 05:14] LABS: BASO% 0.3 % (0-3); EOS% 5.6 % (0-8); HEMATOCRIT 31.6 % (37.0-47.0); HEMOGLOBIN 10.1 g/dl (12.0-16.0); IMMATURE GRANULOCYTES 0.5 % (0.0-5.0); MEAN CELL VOLUME 92.9 fL CALC (80.0-100.0); MEAN CORPUSCULAR HGB 29.7 pG CALC (26.0-32.0); MONO% 10.1 % (2-13); NEUT# 5.26 thou/uL (2.00-7.15); NEUT% 67.5 % (42-76); RED BLOOD COUNT 3.4 mill/uL (4.20-5.60); RED CELL DISTRI WIDTH 15.7 % (11.5-15.5)
[2024-08-28 05:41] VITALS: BP 130/36
[2024-08-28 05:44] LABS: ALBUMIN 3.4 g/dL (3.2-5.0); BILIRUBIN, TOTAL 0.5 mg/dL (0.02-1.3); CREATININE 1.3 mg/dL (0.5-1.0); MAGNESIUM 1.8 mg/dL (1.6-2.3); POTASSIUM 4.4 mmol/l (3.5-5.1); TOTAL PROTEIN 6.3 g/dL (6.3-8.2)
[2024-08-28 06:26] VITALS: BP 119/34
[2024-08-28 09:29] VITALS: BP 119/34
[2024-08-28] MEDS ORDERED: REGLAN10 MG PO (10:05)
== END 2024-08-28 10:41 | disposition home health service (06) ==
LOC: ED 11:58 → ED-I 14:08 → MS2 14:27 → ED 14:27 → MS2 14:27
PROVIDERS: Family Medicine; Nurse Practitioner Family; ADMIT Internal Medicine; ATTEND Internal Medicine
DX: I95.1 Orthostatic hypotension (principal); N17.9 Acute kidney failure, unspecified; E86.0 Dehydration; I12.9 Hypertensive chronic kidney disease with stage 1 through stage 4 chronic kidney disease, or unspecified chronic kidney disease; E11.22 Type 2 diabetes mellitus with diabetic chronic kidney disease; N18.30 Chronic kidney disease, stage 3 unspecified; E11.40 Type 2 diabetes mellitus with diabetic neuropathy, unspecified; E78.5 Hyperlipidemia, unspecified; E66.01 Morbid (severe) obesity due to excess calories; Z68.42 Body mass index [BMI] 45.0-49.9, adult; E03.9 Hypothyroidism, unspecified; R11.0 Nausea; Z79.84 Long term (current) use of oral hypoglycemic drugs; Z85.038 Personal history of other malignant neoplasm of large intestine; Z91.81 History of falling; Z79.4 Long term (current) use of insulin; Z20.822 Contact with and (suspected) exposure to COVID-19
CPT/HCPCS: J1644; J1815; J2405